=== PATIENT | male | born 1980 | race Caucasian/White ===

== ENCOUNTER → 2018-12-07 | Outpatient (CLI) | payer BC, SELFPAY ==
[2018-11-15 10:43] VITALS: BMI 26.8
--- NOTE | 2018-12-07 07:56 | ECHOD_ITS ---
Reason For Study: ARRHYTHMIA Procedure This was a 2D Doppler, Color Flow transthoracic echocardiogram. Exam performed in department. Left Ventricle Normal LV size. Left ventricular systolic function is normal. The estimated ejection fraction is 60 %. No evidence for diastolic dysfunction. No regional wall motion abnormalities noted. Right Ventricle Normal RV size. Normal systolic function. Atria Normal left atrium. Normal right atrium. Patent foramen ovale. Mitral Valve Normal mitral valve. Tricuspid Valve Normal tricuspid valve. Aortic Valve Normal aortic valve. Trisinus/trileaflet aortic valve. Great Vessels Normal aortic root. The pulmonary artery is normal size. Normal inferior vena cava. Pericardium/Pleural No pericardial effusion. Medication 22 gauge I.V. with prn adaptor inserted into right arm. Performed a rapid injection of agitated mix of 9 cc saline and 1cc air to assess for atrial septal defect. Positive bubble study. MMode/2D Measurements & Calculations LVIDd: 5.1 cm IVSd: 0.81 cm Ao root diam: 3.1 cm LVIDs: 3.5 cm LVPWd: 0.79 cm RVDd: 3.6 cm FS: 31.7 % LAV(MOD-bp): 44.3 ml LA A4 area: 17.6 cm2 LA dimension(2D): 4.2 cm LAV(MOD-bp) Indexed: 22.2 ml/m2 LAV(MOD-sp2): 40.4 ml LAV(MOD-sp4): 47.7 ml RA A4 area: 15.4 cm2 Time Measurements MV dec time: 0.23 sec Doppler Measurements & Calculations MV E max matthew: 71.0 cm/sec Lat Peak E' Matthew: 15.7 cm/sec Med Peak E' Matthew: 11.9 cm/sec MV A max matthew: 42.7 cm/sec E/E' lat: 4.5 E/E' med: 5.9 MV E/A: 1.7 Ao V2 max: 114.2 cm/sec LV V1 max: 91.2 cm/sec PA V2 max: 108.6 cm/sec Ao max P.2 mmHg LV V1 max P.3 mmHg PI end-d matthew: 102.3 cm/sec TR max matthew: 245.3 cm/sec TR max P.1 mmHg Interpretation Summary Normal LV size. Left ventricular systolic function is normal. The estimated ejection fraction is 60 %. No evidence for diastolic dysfunction. Patent foramen ovale. Ordering Physician: Jairo Dial Referring Physician: MINDA MILLARD PA-C Performed By: Rosario Milner, MILI, RVT
== END | disposition home or self-care (01) ==
PROVIDERS: Family Provider Family Medicine; PCP Family Medicine; Referring Provider Internal Medicine Cardiovascular Disease; Visit Provider Internal Medicine Cardiovascular Disease
DX: I10 Essential (primary) hypertension (principal)
CPT/HCPCS: 93306